=== PATIENT | male | born 1980 | race Caucasian/White ===

== ENCOUNTER 2017-08-13 11:23 | Outpatient (RCR) | payer MEDICAID | END 2017-08-23 | LOC: M OUTALCOH 11:23 | DX: F10.10 Alcohol abuse, uncomplicated (principal) ==

== ENCOUNTER 2018-12-31 12:00 | Emergency (ER) | payer MEDICAID, OTHER ==
[~2018-12-31] VITALS: Ht 175.3 cm; Wt 108.5 kg
[2018-12-31] MEDS ORDERED: KETOROLAC 60 MG/2 ML VIAL (J1885) IM ONE (14:15)
[2018-12-31] MEDS ORDERED: ACETAMINOPHEN 325 MG TAB PO ONE (14:15)
[2018-12-31] MEDS ORDERED: KETO10TAB PO (14:51)
[2018-12-31] MEDS ORDERED: PENI500T PO (14:51)
[2018-12-31 14:58] VITALS: BP 139/84
== END 2018-12-31 15:00 | disposition home or self-care (01) ==
LOC: M ED 12:00
DX: K03.81 Cracked tooth (principal); K02.9 Dental caries, unspecified
CPT/HCPCS: 96372; 99283; J1885

== ENCOUNTER → 2019-01-26 | Outpatient (REF) | payer OTHER ==
[~2019-01-26] MED LIST: KETO10TAB PO; PENI500T PO
[2019-01-26 12:42] LABS: BASO # 0.1 10^3/uL (0.0-0.2); BASO % 0.6 % (0.0-1.0); EOS # 0.2 10^3/uL (0.0-0.5); EOS % 1.9 % (0.0-3.0); HEMATOCRIT 40.6 % (42.0-52.0); HEMOGLOBIN 13.3 g/dl (13.5-17.5); LYMPH # 2.2 10^3/uL (1.5-5.0); LYMPH % 22.7 % (24.0-44.0); MEAN CORPUSCULAR HEMOGLOBIN 29.4 pg (27.0-33.0); MEAN CORPUSCULAR HGB CONC 32.8 g/dl (32.0-36.5); MEAN CORPUSCULAR VOLUME 89.6 fl (80.0-96.0); MONO # 0.8 10^3/uL (0.0-0.8); NEUTROPHILS # 6.5 10^3/uL (1.5-8.5); NEUTROPHILS % 66.4 % (36.0-66.0); PLATELET COUNT, AUTOMATED 355 10^3/uL (150-450); RED BLOOD COUNT 4.53 10^6/uL (4.30-6.10); WHITE BLOOD COUNT 9.8 10^3/uL (4.0-10.0)
[2019-01-26 13:00] LABS: ALT/SGPT 35 U/L (12-78); BILIRUBIN,TOTAL 0.3 MG/DL (0.2-1.0); BLOOD UREA NITROGEN 14 MG/DL (7-18); CALCIUM LEVEL 9.4 MG/DL (8.5-10.1); CARBON DIOXIDE LEVEL 29 MEQ/L (21-32); CHLORIDE LEVEL 107 MEQ/L (98-107); CHOLESTEROL LEVEL 193 MG/DL (<200); CHOLESTEROL RISK RATIO 6.225 (<5); CREATININE FOR GFR 0.88 MG/DL (0.70-1.30); GLOMERULAR FILTRATION RATE > 60.0 (>60); GLUCOSE, FASTING 98 MG/DL (70-100); HDL CHOLESTEROL 31 MG/DL (>40); LDL CHOLESTEROL 94 MG/DL (<100); NON-HDL-C 162 MG/DL; POTASSIUM SERUM 4.7 MEQ/L (3.5-5.1); SODIUM LEVEL 141 MEQ/L (136-145); THYROID STIMULATING HORMONE 0.674 uIU/ML (0.358-3.740); TOTAL PROTEIN 7.5 GM/DL (6.4-8.2); TRIGLYCERIDES LEVEL 338 MG/DL (<150)
== END ==
LOC: M SFHCADAM 07:59
PROVIDERS: ATTEND Physician Assistant Medical
DX: R06.83 Snoring (principal); F10.10 Alcohol abuse, uncomplicated; E66.9 Obesity, unspecified

== ENCOUNTER 2019-03-20 06:14 | Emergency (ER) | payer OTHER ==
[~2019-03-20] VITALS: Ht 175.3 cm; Wt 104.5 kg
[2019-03-20 06:14] VITALS: BP 139/94
[2019-03-20] MEDS ORDERED: INDO50CA91 PO (07:03)
[2019-03-20] MEDS ORDERED: INDOMETHACIN 25 MG CAP PO ONE (07:15)
== END 2019-03-20 07:56 | disposition home or self-care (01) ==
LOC: M ED 06:14
DX: M10.071 Idiopathic gout, right ankle and foot (principal)

== ENCOUNTER 2021-08-14 08:08 | Emergency (ER) | payer OTHER ==
[~2021-08-14] VITALS: Ht 175.3 cm; Wt 98.0 kg
[~2021-08-14 08:08] MED LIST changes: +INDO50CA91 PO
[2021-08-14] MEDS ORDERED: IBUP-1022 (08:24)
[2021-08-14] MEDS ORDERED: KETOROLAC 30 MG/ML 1ML VIAL IM ONE (09:25)
[2021-08-14] MEDS ORDERED: AUGMENTIN 875 MG TAB PO ONE (09:25)
[2021-08-14] MEDS ORDERED: dexameTHASONE 20MG/5ML VIAL (J1100 PER 1MG) IM ONE (09:25)
[2021-08-14] MEDS ORDERED: LIDOCAINE VISCOUS 2% SOLN 15ML UDC SSP ONE (09:35)
[2021-08-14] MEDS ORDERED: AMOX875T2 PO (09:44)
[2021-08-14] MEDS ORDERED: PERCOCET 5MG/325MG TAB PO ONE (10:10)
[2021-08-14] MEDS ORDERED: PERC5TAB12 PO (10:10)
[2021-08-14 10:16] VITALS: BP 133/89
== END 2021-08-14 10:19 | disposition home or self-care (01) ==
LOC: M ED 08:08
DX: K08.89 Other specified disorders of teeth and supporting structures (principal); K02.9 Dental caries, unspecified; K08.109 Complete loss of teeth, unspecified cause, unspecified class; R51.9 Headache, unspecified
CPT/HCPCS: 96372; 99283; J1100; J1885

== ENCOUNTER 2022-07-10 02:51 | Emergency (ER) | payer OTHER ==
[~2022-07-10] VITALS: Ht 172.7 cm; Wt 104.5 kg
[2022-07-10 02:51] VITALS: BP 160/104
[~2022-07-10 02:51] MED LIST changes: +AMOX875T2 PO; +IBUP-1022; +PERC5TAB12 PO
[2022-07-10] MEDS ORDERED: LIDOCAINE 2% MDV 20ML VIAL SC ONE (03:40)
[2022-07-10] MEDS ORDERED: NEOSPORIN OINT 0.9 GM PKT TOP ONE (03:40)
[2022-07-10] MEDS ORDERED: BOOSTRIX/ADACEL VACCINE (DIPHTH/PERTUSS/ACELL/TETANUS) 0.5ML SYR IM.IMMUN ONE (03:40)
== END 2022-07-10 04:42 | disposition home or self-care (01) ==
LOC: M ED 02:51
DX: S61.216A Laceration without foreign body of right little finger without damage to nail, initial encounter (principal); W26.0XXA Contact with knife, initial encounter; Y92.009 Unspecified place in unspecified non-institutional (private) residence as the place of occurrence of the external cause; Z79.2 Long term (current) use of antibiotics; Z79.899 Other long term (current) drug therapy

== ENCOUNTER 2023-04-04 23:36 | Emergency (ER) | payer OTHER ==
[2023-04-05 00:02] VITALS: BP 162/95; TEMP 97; O2SAT 100
== END 2023-04-04 23:50 | disposition left against medical advice (07) ==
LOC: M ED 23:36 → EDBD 23:36 → M ED 23:50
DX: Z53.21 Procedure and treatment not carried out due to patient leaving prior to being seen by health care provider (principal)

== ENCOUNTER 2023-11-30 19:56 | Emergency (ER) | payer MEDICAID, OTHER, SELFPAY ==
[~2023-11-30] VITALS: Ht 172.7 cm; Wt 101.1 kg
[2023-11-30 19:56] VITALS: BP 141/88; TEMP 97.5; O2SAT 96
== END 2023-11-30 20:45 | disposition left against medical advice (07) ==
LOC: M ED 19:56
DX: Z53.21 Procedure and treatment not carried out due to patient leaving prior to being seen by health care provider (principal)

== ENCOUNTER 2023-12-01 03:25 | Emergency (ER) | payer SELFPAY ==
[~2023-12-01] VITALS: Ht 172.7 cm; Wt 102.1 kg
[2023-12-01 03:25] VITALS: BP 165/90; TEMP 97.6; O2SAT 96
== END 2023-12-01 05:55 | disposition left against medical advice (07) ==
LOC: M ED 03:25
DX: Z53.21 Procedure and treatment not carried out due to patient leaving prior to being seen by health care provider (principal)

== ENCOUNTER 2023-12-05 13:23 | Emergency (ER) | payer OTHER, SELFPAY ==
[~2023-12-05] VITALS: Ht 172.7 cm; Wt 103.0 kg
[2023-12-05] MEDS ORDERED: CEPH500C PO (15:35)
[2023-12-05] MEDS: CEPHALEXIN 500 MG CAP PO ONE (15:43)
[2023-12-05 15:47] VITALS: BP 160/98; TEMP 97.5; O2SAT 98
== END 2023-12-05 15:47 | disposition home or self-care (01) ==
LOC: M ED 13:23
DX: S01.112A Laceration without foreign body of left eyelid and periocular area, initial encounter (principal); W22.8XXA Striking against or struck by other objects, initial encounter; I10 Essential (primary) hypertension; F17.200 Nicotine dependence, unspecified, uncomplicated; Y92.009 Unspecified place in unspecified non-institutional (private) residence as the place of occurrence of the external cause; Y93.89 Activity, other specified; Y99.9 Unspecified external cause status; Z79.2 Long term (current) use of antibiotics

== ENCOUNTER 2024-07-13 22:41 | Emergency (ER) | payer OTHER ==
[~2024-07-13] VITALS: Ht 172.7 cm; Wt 104.9 kg
[~2024-07-13 22:41] MED LIST changes: +CEPH500C PO
[2024-07-14] MEDS ORDERED: CEPH500C PO (00:57)
[2024-07-14 01:01] VITALS: BP 137/90; TEMP 97.3; O2SAT 98
[2024-07-14] MEDS: CEPHALEXIN 500 MG CAP PO ONE (01:05)
== END 2024-07-14 01:07 | disposition home or self-care (01) ==
LOC: M ED 22:41
DX: J02.0 Streptococcal pharyngitis (principal); F17.200 Nicotine dependence, unspecified, uncomplicated; Z79.2 Long term (current) use of antibiotics